=== PATIENT | male | born 1995 | race Caucasian/White ===

== ENCOUNTER 2016-12-14 15:27 | Emergency (ER) | payer BC, SELFPAY ==
[2016-12-14 15:50] VITALS: BP 124/70
--- NOTE | 2016-12-14 16:17 | EDM.PDOC ---
[id number] 4d KICK TO THE SIDE VOMITING Time Seen by Provider: 12/14/16 16:00 Source of Information: Reports: Patient History Limitations: Reports: No Limitations - History of Present Illness INITIAL COMMENTS - FREE TEXT/NARRATIVE: 21-year-old male was kicked in the right flank and right abdomen while playing basketball yesterday. He vomited once after the injury, but the pain went away and he continued to play. He felt fine this morning but after swimming in the [place] he became nauseous again and vomited twice, times there appeared to be a small amount of blood in the emesis. Scared him and his friend so they brought him in to be seen. He has no fevers or chills, no shortness of breath, no diarrhea. Quality: Reports: Ache Severity: Mild Associated Symptoms: Reports: Nausea/Vomiting, Other (Hematemesis). Denies: Chest Pain, Shortness of Breath right side Pain Score (Numeric/FACES): 5 - Related Data Allergies Allergy/AdvReac Type Severity Reaction Status Date / Time No Known Allergies Allergy Verified 12/14/16 15:46 Home Meds: Home Meds NK [No Known Home Meds] 12/14/16 [History] Past Medical History Respiratory History: Reports: Other (See Below) Other Respiratory History: sometimes short of breath at work Gastrointestinal History: Reports: Other (See Below) Other Gastrointestinal History: states nausea at work Musculoskeletal History: Reports: Other (See Below) Other Musculoskeletal History: torn acl and lcl in lt knee - football injury Psychiatric History: Reports: ADHD Other Psychiatric History: adhd - was medicated in past - weaned from medication in sr yr to attempt to joint . - Past Surgical History Musculoskeletal Surgical History: Reports: Arthroscopic Knee Social & Family History - Tobacco Use Smoking Status *Q: Never Smoker Years of Tobacco use: 2 Packs/Tins Daily: 0.1 Second Hand Smoke Exposure: No - Recreational Drug Use Recreational Drug Use: No ED ROS GENERAL - Review of Systems Review Of Systems: See Below Constitutional: Reports: No Symptoms HEENT: Reports: No Symptoms Respiratory: Denies: Shortness of Breath Cardiovascular: Reports: Chest Pain GI/Abdominal: Reports: Nausea, Vomiting. Denies: Abdominal Pain Skin: Denies: Bruising Neurological: Reports: No Symptoms ED EXAM, GENERAL - Physical Exam Exam: See Below Exam Limited By: No Limitations General Appearance: Alert, No Apparent Distress Eye Exam: Bilateral Eye: Normal Inspection Respiratory/Chest: No Respiratory Distress, Lungs Clear, Other (He has a small area of tenderness to palpation on the lateral lower right rib cage, no crepitus or bruising seen. Abdomen is soft and nontender) Cardiovascular: Regular Rate, Rhythm Extremities: Normal Inspection Psychiatric: Normal Affect, Normal Mood Skin Exam: Warm, Dry Course - Vital Signs Last Recorded V/S: Last Vital Signs Temp 98.1 F 12/14/16 15:49 Pulse 78 12/14/16 15:49 Resp 16 12/14/16 15:49 BP 124/70 12/14/16 15:49 Pulse Ox 98 12/14/16 15:49 - Re-Assessments/Exams Free Text/Narrative Re-Assessment/Exam: 12/14/16 16:15 Patient was asked to stand and jump up and down and he had no symptoms. I don' t think the hematemesis is directly related to the flank injury. He is very stable and feels fine so I asked him to return in the next day or 2 if symptoms recur but no workup is necessary at this time Departure - Departure Time of Disposition: 16:35 Disposition: Home, Self-Care 01 Condition: good Clinical Impression: Contusion of flank Qualifiers: Encounter type: initial encounter Qualified Code(s): S30.1XXA - Contusion of abdominal wall, initial encounter Nausea and vomiting Qualifiers: Vomiting type: hematemesis Qualified Code(s): K92.0 - Hematemesis - Discharge Information Instructions: Contusion Referrals: PCP,None [Primary Care Provider] - Forms: ED Department Discharge Care Plan Goals: Increase diet and activity as tolerated. Return in the next 1 to 2 days if worsening or concerns.
== END 2016-12-14 16:36 | disposition home or self-care (01) ==
LOC: JP.ED 15:27
DX: S30.1XXA Contusion of abdominal wall, initial encounter (principal); K92.0 Hematemesis; F90.9 Attention-deficit hyperactivity disorder, unspecified type; X58.XXXA Exposure to other specified factors, initial encounter; Y93.11 Activity, swimming; Y93.67 Activity, basketball
CPT/HCPCS: 99284

== ENCOUNTER 2018-10-09 19:15 | Emergency (ER) | payer BC, MEDICAID, OTHER ==
[2018-10-09 19:49] VITALS: BP 136/92
--- NOTE | 2018-10-09 20:20 | EDM.PDOC ---
ED HPI GENERAL MEDICAL PROBLEM - General Chief Complaint: ENT Problem Stated Complaint: WISDOM TOOTH PAIN LEFT SIDE BOTTOM Time Seen by Provider: 10/09/18 20:05 Source of Information: Reports: Patient, RN History Limitations: Reports: No Limitations - History of Present Illness INITIAL COMMENTS - FREE TEXT/NARRATIVE: 23 yo male broke off a piece of his L mandibular molar a couple mos ago. Is waiting for approval from his insurance to have this wisdom tooth and the others pulled. Now has since this morning constant aching in the tooth that is broken. No fever or facial swelling. OTC analgesia is not controlling his pain. He does not have a family doctor. Onset: Today Onset Date: 10/09/18 Onset Time: 08:00 Duration: Getting Worse Location: Reports: Face (L posterior mandible) Quality: Reports: Ache Severity: Moderate Improves with: Reports: Medication Worsens with: Reports: Other (time) Context: Reports: Other (see HPI) Associated Symptoms: Reports: No Other Symptoms. Denies: Fever/Chills Treatments TEST MANAGER: Reports: Other (see below) (none) Left Lower Tooth/Teeth Pain Score (Numeric/FACES): 8 - Related Data Allergies Allergy/AdvReac Type Severity Reaction Status Date / Time No Known Allergies Allergy Verified 10/09/18 20:03 Home Meds: Home Meds NK [No Known Home Meds] 12/14/16 [History] Past Medical History HEENT History: Reports: Impaired Vision Respiratory History: Reports: Other (See Below) Other Respiratory History: sometimes short of breath at work Gastrointestinal History: Reports: Other (See Below) Other Gastrointestinal History: states nausea at work Musculoskeletal History: Reports: Fracture, Other (See Below) Other Musculoskeletal History: torn acl and lcl in lt knee - football injury Psychiatric History: Reports: ADHD Other Psychiatric History: adhd - was medicated in past - weaned from medication in sr yr to attempt to joint . - Past Surgical History Musculoskeletal Surgical History: Reports: Arthroscopic Knee Social & Family History - Tobacco Use Smoking Status *Q: Current Every Day Smoker Years of Tobacco use: 10 Packs/Tins Daily: 1.5 - Caffeine Use Caffeine Use: Reports: Soda - Recreational Drug Use Recreational Drug Use: No ED ROS ENT - Review of Systems Review Of Systems: See Below Constitutional: Reports: No Symptoms HEENT: Reports: Dental Pain, Vertigo Cardiovascular: Reports: No Symptoms GI/Abdominal: Reports: No Symptoms Musculoskeletal: Reports: No Symptoms Skin: Reports: No Symptoms Neurological: Reports: No Symptoms ED EXAM, ENT - Physical Exam Exam: See Below Exam Limited By: No Limitations General Appearance: Alert, WD/WN, No Apparent Distress Eye Exam: Bilateral Eye: Normal Inspection Ears: Normal External Exam, Normal Canal, Hearing Grossly Normal, Normal TMs Nose: Normal Inspection, No Blood Mouth/Throat: Normal Inspection, Normal Lips, Normal Oropharynx, Other ( partially broken off L mandibular wisdom tooth. Tender with percussion. ) Head: Atraumatic, Normocephalic. No: Facial Swelling Neck: Normal Inspection, Supple, Non-Tender. No: Lymphadenopathy (R), Lymphadenopathy (L) Respiratory/Chest: No Respiratory Distress, No Accessory Muscle Use Cardiovascular: Regular Rate, Rhythm Extremities: Normal Inspection Neurological: Alert, Oriented, CN II-XII Intact, Normal Cognition, No Motor/ Sensory Deficits Psychiatric: Normal Affect, Normal Mood Skin: Warm, Dry, Intact, Normal Color, No Rash Course - Vital Signs Last Recorded V/S: Last Vital Signs Temp 36.3 C 10/09/18 20:04 Pulse 79 10/09/18 20:04 Resp 16 10/09/18 20:04 BP 136/92 H 10/09/18 20:04 Pulse Ox 98 10/09/18 20:04 Departure - Departure Time of Disposition: 20:19 Disposition: Home, Self-Care 01 Condition: Fair Clinical Impression: Dental infection Broken tooth Qualifiers: Encounter type: initial encounter Fracture type: open Qualified Code(s): S02.5XXB - Fracture of tooth (traumatic), initial encounter for open fracture - Discharge Information *PRESCRIPTION DRUG MONITORING PROGRAM REVIEWED*: No *COPY OF PRESCRIPTION DRUG MONITORING REPORT IN PATIENT ARELY: No Instructions: Dental Abscess, [id number] Referrals: PCP,None [Primary Care Provider] - Additional Instructions: Use Penicillin every 6 hrs until gone. Take ibuprofen 600 mg every 6 hrs with food for pain relief. Add acetaminophen 1000 mg every 6 hrs for additional pain relief. If more pain relief is needed, then substitute Magnolia for the acetaminophen. Get established with a local provider so you have someone to follow up with if you need more medical care before the oral surgeon pulls your teeth.
== END 2018-10-09 20:38 | disposition home or self-care (01) ==
LOC: JP.ED 19:15
DX: K04.7 Periapical abscess without sinus (principal); K03.81 Cracked tooth; F17.210 Nicotine dependence, cigarettes, uncomplicated
CPT/HCPCS: 99282

== ENCOUNTER 2018-10-15 18:57 | Emergency (ER) | payer MEDICAID | END 2018-10-15 20:02 | disposition left against medical advice (07) | LOC: JP.ED 18:57 | DX: Z53.21 Procedure and treatment not carried out due to patient leaving prior to being seen by health care provider (principal) ==

== ENCOUNTER 2018-11-07 01:08 | Emergency (ER) | payer MEDICAID ==
[2018-11-07 01:45] VITALS: BP 128/81
--- NOTE | 2018-11-07 03:00 | EDM.PDOC ---
ED HPI GENERAL MEDICAL PROBLEM - General Chief Complaint: Flank Pain Stated Complaint: RIGHT SIDE BACK PAIN Time Seen by Provider: 11/07/18 02:55 Source of Information: Reports: Patient History Limitations: Reports: No Limitations - History of Present Illness INITIAL COMMENTS - FREE TEXT/NARRATIVE: pt has pain in the rt flank area. He is rating his pain a 8. He is not vomiting. Onset: Other ( started earlier today. ) Duration: Hour(s): Location: Reports: Abdomen, Other ( rt flnk area. ) Associated Symptoms: Reports: No Other Symptoms Right Lower Posterior Back Pain Score (Numeric/FACES): 6 - Related Data Allergies Allergy/AdvReac Type Severity Reaction Status Date / Time No Known Allergies Allergy Verified 11/07/18 01:43 Home Meds: Home Meds NK [No Known Home Meds] 12/14/16 [History] Past Medical History HEENT History: Reports: Impaired Vision Respiratory History: Reports: Other (See Below) Other Respiratory History: sometimes short of breath at work Gastrointestinal History: Reports: Other (See Below) Other Gastrointestinal History: states nausea at work Musculoskeletal History: Reports: Fracture, Other (See Below) Other Musculoskeletal History: torn acl and lcl in lt knee - football injury Psychiatric History: Reports: ADHD Other Psychiatric History: adhd - was medicated in past - weaned from medication in sr yr to attempt to joint . - Past Surgical History Musculoskeletal Surgical History: Reports: Arthroscopic Knee Social & Family History - Tobacco Use Smoking Status *Q: Current Every Day Smoker Years of Tobacco use: 12 Packs/Tins Daily: 1.5 - Caffeine Use Caffeine Use: Reports: Coffee, Soda - Alcohol Use Days Per Week of Alcohol Use: 3 Number of Drinks Per Day: 9 Total Drinks Per Week: 27 - Recreational Drug Use Recreational Drug Use: No ED ROS GENERAL - Review of Systems Review Of Systems: See Below Constitutional: Reports: No Symptoms HEENT: Reports: No Symptoms Respiratory: Reports: No Symptoms Cardiovascular: Reports: No Symptoms Endocrine: Reports: No Symptoms GI/Abdominal: Reports: Other (pain in rt flank area and rt abdoman. ) : Reports: No Symptoms Musculoskeletal: Reports: No Symptoms Skin: Reports: No Symptoms ED EXAM, GI/ABD - Physical Exam Exam: See Below Text/Narrative:: pt arrived with pain in the rt lower flsnk area. He states he has not had a BM for 1 week. Exam Limited By: No Limitations General Appearance: Alert, Moderate Distress Ears: Normal TMs Nose: Normal Inspection Throat/Mouth: Normal Inspection Head: Atraumatic Neck: Normal Inspection Respiratory/Chest: No Respiratory Distress Cardiovascular: Regular Rate, Rhythm GI/Abdominal Exam: Other ( tender in the rt flank area. He appears to have some muscle pain ) (Male) Exam: Deferred Rectal (Males) Exam: Deferred Back Exam: CVA Tenderness (R) Extremities: Normal Inspection Course - Vital Signs Last Recorded V/S: Last Vital Signs Temp 36.6 C 11/07/18 01:49 Pulse 57 L 11/07/18 01:49 Resp 18 11/07/18 01:49 BP 128/81 11/07/18 01:49 Pulse Ox 98 11/07/18 01:49 - Orders/Labs/Meds Orders: Active Orders 24 hr Category Date Time Status Abdomen 2V AP Flat Upright [CR] Stat Exams 11/07/18 02:54 Ordered Cyclobenzaprine [Flexeril] Med 11/07/18 03:10 Once 10 mg PO ONETIME ONE Medication Orders Cyclobenzaprine HCl (Flexeril) 10 mg PO ONETIME ONE Stop: 11/07/18 03:11 Labs: Laboratory Tests 11/07/18 11/07/18 11/07/18 Range/Units 02:00 02:00 02:10 WBC 7.2 (4.5-11.0) K/uL RBC 5.53 (4.30-5.90) M/uL Hgb 15.0 (12.0-15.0) g/dL Hct 44.7 (40.0-54.0) % MCV 81 (80-98) fL MCH 27 (27-31) pg MCHC 34 (32-36) % Plt Count 286 (150-400) K/uL Neut % (Auto) 61 (36-66) % Lymph % (Auto) 22 L (24-44) % [place] % (Auto) 14 H (2-6) % Eos % (Auto) 3 (2-4) % Baso % (Auto) 1 (0-1) % Sodium 139 L (140-148) mmol/L Potassium 4.4 (3.6-5.2) mmol/L Chloride 102 (100-108) mmol/L Carbon Dioxide 27 (21-32) mmol/L Anion Gap 14.4 H (5.0-14.0) mmol/L BUN 7 (7-18) mg/dL Creatinine 1.0 (0.8-1.3) mg/dL Est Cr Clr Drug Dosing 134.72 mL/min Estimated GFR (MDRD) > 60 (>60) Glucose 109 H (74-106) mg/dL Calcium 9.4 (8.5-10.1) mg/dL Total Bilirubin 0.4 (0.2-1.0) mg/dL AST 19 (15-37) U/L ALT 27 (12-78) U/L Alkaline Phosphatase 72 (46-116) U/L Total Protein 7.5 (6.4-8.2) g/dL Albumin 3.5 (3.4-5.0) g/dL Globulin 4.0 H (2.3-3.5) g/dL Albumin/Globulin Ratio 0.9 L (1.2-2.2) Urine Color Yellow Urine Appearance Clear Urine pH 5.0 (4.5-8.0) Ur Specific Calvin 1.025 (1.008-1.030) Urine Protein Negative (NEGATIVE) mg/dL Urine Glucose (UA) Normal (NEGATIVE) mg/dL Urine Ketones Negative (NEGATIVE) mg/dL Urine Occult Blood Negative (NEGATIVE) Urine Nitrite Negative (NEGAITVE) Urine Bilirubin Negative (NEGATIVE) Urine Urobilinogen Normal (NORMAL) mg/dL Ur Leukocyte Esterase Negative (NEGATIVE) Urine RBC 0-5 (0-5) Urine WBC 0-5 (0-5) Ur Epithelial Cells Few Amorphous Sediment Not seen Urine Bacteria Few Urine Mucus Many Urine Other Meds: Medications Generic Name Dose Route Start Last Admin Trade Name Freq PRN Reason Stop Dose Admin Cyclobenzaprine HCl 10 mg 11/07/18 03:10 Flexeril PO 11/07/18 03:11 ONETIME ONE Discontinued Medications Generic Name Dose Route Start Last Admin Trade Name Freq PRN Reason Stop Dose Admin Ketorolac Tromethamine 60 mg 11/07/18 03:09 Toradol IM 11/07/18 03:10 ONETIME ONE Magnesium Citrate 296 ml 11/07/18 03:07 Citrate Of Magnesia PO 11/07/18 03:08 ONETIME ONE - Re-Assessments/Exams Free Text/Narrative Re-Assessment/Exam: 11/07/18 03:05 flat plate of the abdoman showed a large amount of stool. He was very tenderto palpate the musle area in the rt flank. Departure - Departure Time of Disposition: 03:06 Disposition: Home, Self-Care 01 Condition: Fair Clinical Impression: Muscle strain, Constipation - Discharge Information Referrals: PCP,None [Primary Care Provider] - Forms: ED Department Discharge Care Plan Goals: heat to the rt flank, flexeril 10 mg bid, tramodol 50mg q8h as needed for pain, increase fiber in diet, push fluids, gummy fibers 3-4 per day. - My Orders Last 24 Hours: My Active Orders 11/07/18 02:54 Abdomen 2V AP Flat Upright [CR] Stat 11/07/18 03:10 Cyclobenzaprine [Flexeril] 10 mg PO ONETIME ONE - Assessment/Plan Last 24 Hours: My Active Orders 11/07/18 02:54 Abdomen 2V AP Flat Upright [CR] Stat 11/07/18 03:10 Cyclobenzaprine [Flexeril] 10 mg PO ONETIME ONE
[2018-11-07] MEDS ORDERED: Magnesium Citrate Solution 296 ML Bottle PO ONE (03:07)
[2018-11-07] MEDS ORDERED: Ketorolac 60 MG/2 ML SDV IM ONE (03:09)
[2018-11-07] MEDS ORDERED: Cyclobenzaprine 10 MG Tab PO ONE (03:10)
--- NOTE | 2018-11-07 03:59 | CRLCR ---
Indication: Constipation Technique: KUB 2 view Comparison: None Findings/Impression: : Moderate to large amount of stool throughout the colon. No evidence for obstruction, free air, or pneumatosis. No abnormal calcification. Intact osseous structures. Dictated by Maranda Venegas MD @ Nov 07 2018 3:56AM Signed by Dr. Maranda Venegas @ Nov 07 2018 3:57AM
== END 2018-11-07 03:50 | disposition home or self-care (01) ==
LOC: JP.ED 01:08
DX: K59.00 Constipation, unspecified (principal); F17.210 Nicotine dependence, cigarettes, uncomplicated; T14.8XXA Other injury of unspecified body region, initial encounter; X58.XXXA Exposure to other specified factors, initial encounter
CPT/HCPCS: 36415; 74019; 80053; 81001; 85025; 96372; 99283; A9270; J1885

== ENCOUNTER 2018-11-08 19:34 | Emergency (ER) | payer MEDICAID ==
[2018-11-08 19:51] VITALS: BP 125/77
--- NOTE | 2018-11-08 20:11 | EDM.PDOC ---
ED HPI GENERAL MEDICAL PROBLEM - General Chief Complaint: Gastrointestinal Problem Stated Complaint: BOWELS Time Seen by Provider: 11/08/18 20:01 Source of Information: Reports: Patient History Limitations: Reports: No Limitations - History of Present Illness INITIAL COMMENTS - FREE TEXT/NARRATIVE: the patient returns because of continued constipation and recent passage of small hard stool with some rectal bleeding. He was seen in this department in the outpatient case manager hours today and was sent home with magnesium citrate. He drank that and then had a small bowel movement around 0900 hrs. he states that he noticed blood with passage of stool. He spoke with his mother who brought him back tonight. He has had no further bowel movements since this morning. He states that his general pattern is one bowel movement every 7-10 days. He does eat but often gets a nauseated feeling shortly after beginning to eat and may vomit food. He has been this way for many many years. No other recent changes in health that he recognizes Duration: Chronic Quality: Reports: Ache, Pressure Severity: Moderate Improves with: Reports: None Worsens with: Reports: Eating Associated Symptoms: Reports: No Other Symptoms Treatments CLIENT INTEGRATION MANAGER: Reports: Other (see below) Other Treatments CLIENT INTEGRATION MANAGER: unknown Left lower Abdomen Pain Score (Numeric/FACES): 8 - Related Data Allergies Allergy/AdvReac Type Severity Reaction Status Date / Time No Known Allergies Allergy Verified 11/08/18 19:54 Home Meds: Home Meds Cyclobenzaprine [Flexeril] 10 mg PO TID PRN 11/08/18 [History] traMADol [Ultram] 50 mg PO Q8H PRN 11/08/18 [History] Past Medical History HEENT History: Reports: Impaired Vision Respiratory History: Reports: Other (See Below) Other Respiratory History: sometimes short of breath at work Gastrointestinal History: Reports: Other (See Below) Other Gastrointestinal History: states nausea at work Musculoskeletal History: Reports: Fracture, Other (See Below) Other Musculoskeletal History: torn acl and lcl in lt knee - football injury Psychiatric History: Reports: ADHD Other Psychiatric History: adhd - was medicated in past - weaned from medication in sr yr to attempt to joint . - Past Surgical History Musculoskeletal Surgical History: Reports: Arthroscopic Knee Social & Family History - Caffeine Use Caffeine Use: Reports: Coffee, Soda ED ROS GENERAL - Review of Systems Review Of Systems: See Below Constitutional: Reports: No Symptoms Respiratory: Reports: No Symptoms Cardiovascular: Reports: No Symptoms GI/Abdominal: Reports: Anorexia, Constipation (small bowel movements every 7 or so days.) : Reports: No Symptoms ED EXAM, GI/ABD - Physical Exam Exam: See Below Text/Narrative:: this is an adult male in no distress using his cell phone when I enter the room. GI/Abdominal Exam: Soft, Abnormal Bowel Sounds (infrequent bowel sounds.) Rectal (Males) Exam: Normal Rectal Tone (rectal exam does not demonstrate stool within reach. There are no external hemorrhoids.) Course - Vital Signs Text/Narrative:: his abdomen is very quiet. I looked at images from earlier today and his colon is packed with stool. I discussed with the patient that most helpful thing here in the emergency department would be to use a large volume enema in several iterations to get out the hardest terminal stool. We will then have him use the MiraLAX colonoscopy prep at home. Eventually, once cleaned out, he needs to make a long-term concerted effort noted increasing fiber in his diet. Last Recorded V/S: Last Vital Signs Temp 35.7 C 11/08/18 19:49 Pulse 57 L 11/08/18 19:49 Resp 14 11/08/18 19:49 BP 125/77 11/08/18 19:49 Pulse Ox 98 11/08/18 19:49 - Orders/Labs/Meds Orders: Active Orders 24 hr Category Date Time Status Enema [RC] ASDIRECTED Care 11/08/18 20:31 Active Departure - Departure Time of Disposition: 21:24 Disposition: Home, Self-Care 01 Condition: Good Clinical Impression: Constipation - Discharge Information *PRESCRIPTION DRUG MONITORING PROGRAM REVIEWED*: Not Applicable *COPY OF PRESCRIPTION DRUG MONITORING REPORT IN PATIENT ARELY: Not Applicable Instructions: High-Fiber Diet, Constipation, Adult, [id number] Referrals: Luis Shukla MD [Primary Care Provider] - - Problem List & Annotations (1) Constipation SNOMED Code(s): 31551972 Code(s): K59.00 - CONSTIPATION, UNSPECIFIED Status: Chronic Priority: Medium Current Visit: Yes Qualifiers: Constipation type: unspecified constipation type Qualified Code(s): K59.00 - Constipation, unspecified - Problem List Review Problem List Initiated/Reviewed/Updated: Yes - My Orders Last 24 Hours: My Active Orders 11/08/18 20:31 Enema [RC] ASDIRECTED - Assessment/Plan Last 24 Hours: My Active Orders 11/08/18 20:31 Enema [RC] ASDIRECTED Assessment:: Constipation, chronic. Plan: He needs to get 2 liter size bottles of his favorite flavor of Powerade. He will divide the entire container of MiraLAX powder between the 2 bottles and drink the first bottle over 1 hour. 2 hours later, he should drink the second bottle over a 2 hour stretch as well. I expect that you will have significant stool production. Daily fiber intake with All-Bran, raisin bran, apricots, prunes, cherries will help to maintain soft stool. He needs to consistently increase his food fiber intake for the entire month of November in order to help his intestines returned to more normal function.
== END 2018-11-08 21:46 | disposition home or self-care (01) ==
LOC: JP.ED 19:34
DX: K59.09 Other constipation (principal)
CPT/HCPCS: 99283

== ENCOUNTER 2018-11-12 20:35 | Emergency (ER) | payer MEDICAID ==
[2018-11-12 20:55] VITALS: BP 155/86
[2018-11-12] MEDS ORDERED: Sodium Chloride 0.9% 10 ML Syringe FLUSH PRN (21:42)
[2018-11-12] MEDS ORDERED: Sodium Chloride 0.9% 1,000 ML IV SCH (21:45)
[2018-11-12] MEDS ORDERED: Sodium Chloride 0.9% 80 ML IV SCH (21:45)
[2018-11-12] MEDS ORDERED: Iopamidol 612 MG/ML 150 ML Bottle IV SCH (21:45)
--- NOTE | 2018-11-12 21:45 | EDM.PDOC ---
ED HPI GENERAL MEDICAL PROBLEM - General Chief Complaint: Gastrointestinal Problem Stated Complaint: BOWELS Time Seen by Provider: 11/12/18 21:24 Source of Information: Reports: Patient, Old Records History Limitations: Reports: No Limitations - History of Present Illness INITIAL COMMENTS - FREE TEXT/NARRATIVE: chief complaint: constipation and abdominal cramps This is a 23 year old male presents to ER for concerns of abdominal pain. Reports was seen in ER on 11/08/2018 for constipation. He was first given a enema which resulted in a tiny hard stool, then came back to the ER, sent home with a colon prep, Miralax. States he drank the whole thing and didn't have any stool. Since then every time he eats he vomits, his belly is very painful. has lost 7 pounds since Sunday, denies fever or chills. He lives with his Parent who brought him in to have further evaluation. 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) (given Miralax prep on 11/08/2018 without relief of symptoms.) abdominal Pain Score (Numeric/FACES): 5 - Related Data Allergies Allergy/AdvReac Type Severity Reaction Status Date / Time No Known Allergies Allergy Verified 11/12/18 20:53 Home Meds: Home Meds Cyclobenzaprine [Flexeril] 10 mg PO TID PRN 11/08/18 [History] Past Medical History HEENT History: Reports: Impaired Vision Respiratory History: Reports: Other (See Below) Other Respiratory History: sometimes short of breath at work Gastrointestinal History: Reports: Other (See Below) Other Gastrointestinal History: states nausea at work Musculoskeletal History: Reports: Fracture, Other (See Below) Other Musculoskeletal History: torn acl and lcl in lt knee - football injury Psychiatric History: Reports: ADHD Other Psychiatric History: adhd - was medicated in past - weaned from medication in sr yr to attempt to joint . - Past Surgical History Musculoskeletal Surgical History: Reports: Arthroscopic Knee Social & Family History - Family History Family Medical History: Unobtainable - Tobacco Use Smoking Status *Q: Current Every Day Smoker Years of Tobacco use: 6 Packs/Tins Daily: 1.5 - Caffeine Use Caffeine Use: Reports: Coffee, Energy Drinks, Soda - Recreational Drug Use Recreational Drug Use: No - Living Situation & Occupation Living situation: Reports: with Family Occupation: Unemployed (lives with Parent near [place], [place].) ED ROS GENERAL - Review of Systems Review Of Systems: See Below Constitutional: Reports: Malaise, Decreased Appetite HEENT: Reports: No Symptoms Respiratory: Reports: No Symptoms Cardiovascular: Reports: No Symptoms Endocrine: Reports: No Symptoms GI/Abdominal: Reports: Abdominal Pain, Constipation, Nausea, Vomiting : Reports: No Symptoms Musculoskeletal: Reports: No Symptoms Skin: Reports: No Symptoms Neurological: Reports: No Symptoms Psychiatric: Reports: No Symptoms Hematologic/Lymphatic: Reports: No Symptoms Immunologic: Reports: No Symptoms ED EXAM, GI/ABD - Physical Exam Exam: See Below Exam Limited By: No Limitations General Appearance: Alert, WD/WN, No Apparent Distress Eyes: Bilateral: Normal Appearance Ears: Normal External Exam, Normal Canal, Hearing Grossly Normal, Normal TMs Nose: Normal Inspection, Normal Mucosa, No Blood Throat/Mouth: Normal Inspection Head: Atraumatic, Normocephalic Neck: Normal Inspection, Supple, Non-Tender Respiratory/Chest: No Respiratory Distress, Lungs Clear, Normal Breath Sounds, No Accessory Muscle Use, Chest Non-Tender Cardiovascular: Regular Rate, Rhythm, No Murmur GI/Abdominal Exam: Tender (generalized tenderness to light touch), Abnormal Bowel Sounds (hypoactive) (Male) Exam: Deferred Rectal (Males) Exam: Deferred Back Exam: Normal Inspection, Full Range of Motion Extremities: Normal Range of Motion Neurological: No Motor/Sensory Deficits Psychiatric: Normal Affect, Normal Mood, Flat Affect Skin Exam: Warm, Dry, Intact, Normal Color, No Rash Course - Vital Signs Last Recorded V/S: Last Vital Signs Temp 37.1 C 11/12/18 20:52 Pulse 61 11/12/18 20:52 Resp 16 11/12/18 20:52 BP 155/86 H 11/12/18 20:52 Pulse Ox 98 11/12/18 20:52 - Orders/Labs/Meds Orders: Active Orders 24 hr Category Date Time Status Iopamidol [Isovue-300 (61%)] Med 11/12/18 21:45 Active 141 ml IV . DIRECTED Sodium Chloride 0.9% [Normal Saline] 1,000 ml Med 11/12/18 21:45 Active IV ASDIRECTED Sodium Chloride 0.9% [Normal Saline] 80 ml Med 11/12/18 21:45 Active IV ASDIRECTED Sodium Chloride 0.9% [Saline Flush] Med 11/12/18 21:42 Active 10 ml FLUSH ASDIRECTED PRN Medication Orders Sodium Chloride (Normal Saline) 1,000 mls @ 999 mls/hr IV ASDIRECTED DOC Sodium Chloride (Normal Saline) 80 mls @ 3 mls/sec IV ASDIRECTED DOC Last Admin: 11/12/18 21:54 Dose: 3 mls/sec Iopamidol (Isovue-300 (61%)) 141 ml IV . DIRECTED DOC Last Admin: 11/12/18 21:54 Dose: 141 ml Sodium Chloride (Saline Flush) 10 ml FLUSH ASDIRECTED PRN PRN Reason: Keep Vein Open Last Admin: 11/12/18 21:54 Dose: 10 ml Labs: Laboratory Tests 11/12/18 11/12/18 11/12/18 Range/Units 21:32 21:32 22:56 WBC 6.7 (4.5-11.0) K/uL RBC 5.72 (4.30-5.90) M/uL Hgb 15.6 H (12.0-15.0) g/dL Hct 46.0 (40.0-54.0) % MCV 80 (80-98) fL MCH 27 (27-31) pg MCHC 34 (32-36) % Plt Count 244 (150-400) K/uL Neut % (Auto) 59 (36-66) % Lymph % (Auto) 27 (24-44) % [place] % (Auto) 11 H (2-6) % Eos % (Auto) 3 (2-4) % Baso % (Auto) 1 (0-1) % Sodium 140 (140-148) mmol/L Potassium 4.2 (3.6-5.2) mmol/L Chloride 103 (100-108) mmol/L Carbon Dioxide 27 (21-32) mmol/L Anion Gap 10.5 (5.0-14.0) mmol/L BUN 10 (7-18) mg/dL Creatinine 1.2 (0.8-1.3) mg/dL Est Cr Clr Drug Dosing 112.26 mL/min Estimated GFR (MDRD) > 60 (>60) Glucose 113 H (74-106) mg/dL Calcium 9.1 (8.5-10.1) mg/dL Total Bilirubin 0.3 (0.2-1.0) mg/dL AST 17 (15-37) U/L ALT 27 (12-78) U/L Alkaline Phosphatase 82 (46-116) U/L Total Protein 7.8 (6.4-8.2) g/dL Albumin 3.7 (3.4-5.0) g/dL Globulin 4.1 H (2.3-3.5) g/dL Albumin/Globulin Ratio 0.9 L (1.2-2.2) Urine Color Yellow Urine Appearance Clear Urine pH 7.0 (4.5-8.0) Ur Specific [place] 1.005 L (1.008-1.030) Urine Protein Negative (NEGATIVE) mg/dL Urine Glucose (UA) Normal (NEGATIVE) mg/dL Urine Ketones Negative (NEGATIVE) mg/dL Urine Occult Blood Negative (NEGATIVE) Urine Nitrite Negative (NEGAITVE) Urine Bilirubin Negative (NEGATIVE) Urine Urobilinogen Normal (NORMAL) mg/dL Ur Leukocyte Esterase Negative (NEGATIVE) Urine RBC 0-5 (0-5) Urine WBC 0-5 (0-5) Ur Epithelial Cells Rare Amorphous Sediment Not seen Urine Bacteria Rare Urine Mucus Not seen Meds: Medications Generic Name Dose Route Start Last Admin Trade Name Freq PRN Reason Stop Dose Admin Sodium Chloride 1,000 mls @ 999 mls/hr 11/12/18 21:45 Normal Saline IV ASDIRECTED DOC Sodium Chloride 80 mls @ 3 mls/sec 11/12/18 21:45 11/12/18 21:54 Normal Saline IV 3 mls/sec ASDIRECTED DOC Administration Iopamidol 141 ml 11/12/18 21:45 11/12/18 21:54 Isovue-300 (61%) IV 141 ml . DIRECTED DOC Administration Sodium Chloride 10 ml 11/12/18 21:42 11/12/18 21:54 Saline Flush FLUSH 10 ml ASDIRECTED PRN Administration Keep Vein Open - Re-Assessments/Exams Free Text/Narrative Re-Assessment/Exam: 11/12/18 21:48 discussed with Mr. Pineda will do labs, CT scan of abdomen pelvis, IV fluids. then depending on results of CT scan and labs will determine course of treatment. Mr. Pineda agrees with plan of care. 11/12/18 23:36 labs normal, no signs of infection or dehydrations CT scan normal except for concerns of possible kidney infection, but urine with micro is negative and WBC is normal discussed results with Mr. Pineda, he is still having stomach cramping. but declines enema as he is leaving in 30 mins to go to [place] to help out his Uncle. doesn't want to have bowel movement while traveling. He is satisfied that no acute finding were founds. request to be discharged discussed will order Senna tablets to start tomorrow. will need to follow up in Primary Care for recheck or return to ER if has any concerns. copy of CT scan given to Patient for home medical file. Departure - Departure Time of Disposition: 23:43 Disposition: Home, Self-Care 01 Condition: Good Clinical Impression: Abdominal pain, Constipation - Discharge Information *PRESCRIPTION DRUG MONITORING PROGRAM REVIEWED*: Not Applicable *COPY OF PRESCRIPTION DRUG MONITORING REPORT IN PATIENT ARELY: Not Applicable Instructions: Constipation, Adult, [id number], Abdominal Pain, Adult, Easy-to -Read Referrals: Luis Shukla MD [Primary Care Provider] - Forms: ED Department Discharge Care Plan Goals: Abdominal pain, constipation -start tomorrow Senna tablet take one two times a day -push fluids, avoid dairy -follow up with Primary Care Provider for recheck Return to ER if not improved or symptoms worsen - Problem List & Annotations (1) Constipation SNOMED Code(s): 80170252 Code(s): K59.00 - CONSTIPATION, UNSPECIFIED Status: Acute Priority: High Current Visit: Yes (2) Abdominal pain SNOMED Code(s): 18571970 Code(s): R10.9 - UNSPECIFIED ABDOMINAL PAIN Status: Acute Priority: Medium Current Visit: Yes - Problem List Review Problem List Initiated/Reviewed/Updated: Yes - My Orders Last 24 Hours: My Active Orders 11/12/18 21:42 Sodium Chloride 0.9% [Saline Flush] 10 ml FLUSH ASDIRECTED PRN 11/12/18 21:45 Iopamidol [Isovue-300 (61%)] 141 ml IV . DIRECTED Sodium Chloride 0.9% [Normal Saline] 1,000 ml IV ASDIRECTED Sodium Chloride 0.9% [Normal Saline] 80 ml IV ASDIRECTED - Assessment/Plan Last 24 Hours: My Active Orders 11/12/18 21:42 Sodium Chloride 0.9% [Saline Flush] 10 ml FLUSH ASDIRECTED PRN 11/12/18 21:45 Iopamidol [Isovue-300 (61%)] 141 ml IV . DIRECTED Sodium Chloride 0.9% [Normal Saline] 1,000 ml IV ASDIRECTED Sodium Chloride 0.9% [Normal Saline] 80 ml IV ASDIRECTED Plan: Abdominal pain, constipation -start tomorrow Senna tablet take one two times a day -push fluids, avoid dairy -follow up with Primary Care Provider for recheck Return to ER if not improved or symptoms worsen
--- NOTE | 2018-11-12 22:14 | CRLCT ---
INDICATION: Nausea, vomiting after meals for 4 days TECHNIQUE: CT Abdomen and pelvis with i.v. contrast. Coronal and sagittal reformats were obtained. CONTRAST: 141 mL Isovue 300 COMPARISON: None FINDINGS: Lower chest: There is a 3 mm nodule in the left lower lobe, too small to further characterize. Liver: Unremarkable. Spleen: Unremarkable. Pancreas: Unremarkable. Gallbladder: Unremarkable. Kidney: The regions of poor cortical enhancement seen in the upper pole, midzone and lower pole of the right kidney. A small focus of decreased cortical enhancement is seen at the anterior left renal midzone. Adrenal: Unremarkable. Bowel: Unremarkable. The appendix is normal in appearance and size. Vascular: Unremarkable. Lymph: Unremarkable. Peritoneum: Unremarkable. No pneumoperitoneum is seen. No significant ascites is noted. Pelvis: Unremarkable. Soft tissue: Unremarkable. Bone: Unremarkable for age. IMPRESSION: 1. The regions of poor cortical enhancement seen in the upper pole, midzone and lower pole of the right kidney. A small focus of decreased cortical enhancement is seen at the anterior left renal midzone. Correlation with urinalysis recommended to exclude bilateral pyelonephritis. Dictated by Benjie Michelle MD @ 11/12/2018 10:13:42 PM Please note that all CT scans at this facility use dose modulation, iterative reconstruction, and/or weight-based dosing when appropriate to reduce radiation dose to as low as reasonably achievable. Dictated by: Benjie Michelle MD @ 11/12/2018 22:13:52 (Electronically Signed)
== END 2018-11-13 00:13 | disposition home or self-care (01) ==
LOC: JP.ED 20:35
DX: K59.00 Constipation, unspecified (principal); F17.210 Nicotine dependence, cigarettes, uncomplicated
CPT/HCPCS: 36415; 74177; 80053; 81001; 85025; 99284; J7030

== ENCOUNTER 2020-08-12 17:03 | Emergency (ER) | payer MEDICAID ==
[2020-08-12 17:26] VITALS: BP 137/84; PULSE 87
[2020-08-12] MEDS ORDERED: Ampicillin/Sulbactam Na 3 GM in Sodium Chloride 0.9% 100 ML IV ONE (17:26)
[2020-08-12] MEDS ORDERED: Sodium Chloride 0.9% 10 ML Syringe FLUSH PRN (17:29)
[2020-08-12] MEDS ORDERED: HYDROmorphone 0.5 MG/0.5 ML Syringe IVPUSH ONE (17:30)
--- NOTE | 2020-08-12 17:30 | EDM.PDOC ---
ED HPI GENERAL MEDICAL PROBLEM - General Chief Complaint: ENT Problem Stated Complaint: THROAT INFECTION Time Seen by Provider: 08/12/20 17:26 Source of Information: Reports: Patient, Old Records, Provider, RN History Limitations: Reports: No Limitations - History of Present Illness INITIAL COMMENTS - FREE TEXT/NARRATIVE: 25 yo male here with throat pain. Was seen in the clinic today and a CT of his throat area was ordered and performed, but the provider decided to send Kelton to the ER as 5 pm was approaching. Kelton had reportedly also mentioned that it was hard to breath, but there was no abnormal hypoxia or stridor mentioned. Had Toradol in the clinic and is feeling a lot better from that. 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 - Related Data Allergies Allergy/AdvReac Type Severity Reaction Status Date / Time No Known Allergies Allergy Verified 08/12/20 17:26 Home Meds: Home Meds NK [No Known Home Meds] 08/12/20 [History] Past Medical History HEENT History: Reports: Impaired Vision Respiratory History: Reports: Other (See Below) Other Respiratory History: sometimes short of breath at work Gastrointestinal History: Reports: Other (See Below) Other Gastrointestinal History: states nausea at work Musculoskeletal History: Reports: Fracture, Other (See Below) Other Musculoskeletal History: torn acl and lcl in lt knee - football injury Psychiatric History: Reports: ADHD Other Psychiatric History: adhd - was medicated in past - weaned from medication in sr yr to attempt to joint . - Past Surgical History Musculoskeletal Surgical History: Reports: Arthroscopic Knee Social & Family History - Family History Family Medical History: Unobtainable - Caffeine Use Caffeine Use: Reports: Coffee, Energy Drinks, Soda - Living Situation & Occupation Living situation: Reports: with Family Occupation: Unemployed (lives with Parent near [place], [place].) ED ROS ENT - Review of Systems Review Of Systems: See Below Constitutional: Reports: Fever HEENT: Reports: Throat Pain (L sided), Throat Swelling (L sided) Respiratory: Reports: No Symptoms Cardiovascular: Reports: No Symptoms Skin: Reports: No Symptoms Neurological: Reports: No Symptoms ED EXAM, ENT - Physical Exam Exam: See Below Exam Limited By: No Limitations General Appearance: Alert, WD/WN, No Apparent Distress Eye Exam: Bilateral Eye: Normal Inspection Ears: Normal External Exam, Normal Canal, Hearing Grossly Normal Nose: Normal Inspection, No Blood Mouth/Throat: Normal Lips, Throat Pain, Throat Swelling (mild L posterior swelling in region of the tonsil). No: Hoarse Voice, Lip Swelling, Muffled Voice, Tongue Swelling, Uvular Deviation Head: Atraumatic, Normocephalic Neck: Normal Inspection Respiratory/Chest: No Respiratory Distress, Lungs Clear, Normal Breath Sounds, No Accessory Muscle Use Cardiovascular: Regular Rate, Rhythm, No Edema Extremities: Normal Inspection Neurological: Alert, Oriented, CN II-XII Intact, Normal Cognition, No Motor/Sensory Deficits Psychiatric: Normal Affect, Normal Mood Skin: Warm, Dry, Intact, Normal Color, No Rash Course - Radiology Interpretation Free Text/Narrative:: IMPRESSION: 1. Enlargement and striated enhancement of the left greater than right palatine tonsils, compatible with tonsillitis. Hypoenhancing 11 mm lesion within the left peritonsillar region, compatible with abscess/phlegmon. Inflammatory stranding in the left parapharyngeal and left submandibular spaces with edema extending into the left pharyngeal mucosal space. There is mild narrowing of the oropharyngeal airway. 2. Multiple enlarged level II lymph nodes, likely reactive. Please note that all CT scans at this facility use dose modulation, iterative reconstruction, and/or weight-based dosing when appropriate to reduce radiation dose to as low as reasonably achievable. Dictated by Tim Yates MD @ Aug 12 2020 5:10PM (Electronic Signature) CT Results Date: 08/12/20 CT Results Time: 17:25 Departure - Departure Time of Disposition: 18:30 Disposition: Home, Self-Care 01 Condition: Fair Clinical Impression: Peritonsillar abscess - Discharge Information *PRESCRIPTION DRUG MONITORING PROGRAM REVIEWED*: No *COPY OF PRESCRIPTION DRUG MONITORING REPORT IN PATIENT ARELY: No Instructions: Peritonsillar Abscess, [id number] Referrals: Luis Shukla MD [Primary Care Provider] - Forms: ED Department Discharge Additional Instructions: Take Augmentin every 12 hrs with food, next dose early tomorrow morning. Use ibuprofen 600 mg every 6 hrs with food for pain and fever control. Add hydrocodone with acetaminophen for added pain relief. Return to the clinic for recheck tomorrow, if you are improving you will be able to continue treatment as an outpatient. If you get worse you may need to see an ENT doctor.
== END 2020-08-12 18:27 | disposition home or self-care (01) ==
LOC: JP.ED 17:03
DX: J36 Peritonsillar abscess (principal)
CPT/HCPCS: 96365; 99282; J0295; 99283